=== PATIENT | male | born 1980 | race Caucasian/White ===

== ENCOUNTER → 2019-10-02 | Day surgery (SDC) | payer MEDICARE ==
[~2019-10-02] MED LIST: LORCET 5-325 M1 EACH PO; NOHOMEMEDICATIONS
--- NOTE | ~2019-10-02 | OP ---
[facility] [address] [place] [address] OPERATIVE REPORT Name: LEBRON ROLLE Room: [facility]#: [id number] Admission: 10/02/19 Attend Phys: Leon Pate Discharge: Date of : 80 Report #: [id number] THIS REPORT FOR: //name// cc: Delvis Pena Robin L. FNP THIS REPORT FOR: //name// CC: Leon Pena DATE OF SERVICE: 10/02/2019 PREOPERATIVE DIAGNOSIS: Left inguinal hernia. POSTOPERATIVE DIAGNOSIS: Left inguinal hernia. OPERATION: Laparoscopic repair of left inguinal hernia with mesh. SURGEON: Leon Pate MD ANESTHESIA: General. ESTIMATED BLOOD LOSS: Minimal. SPECIMEN: None. DESCRIPTION OF PROCEDURE: After informed consent was obtained, the patient was brought to the operating room and placed supine. SCDs were placed and working, preoperative antibiotics were administered, general anesthesia was induced. The patient had voided in the preoperative area. The abdomen was then prepped and draped in the usual sterile fashion. A 10 mm incision was made below the umbilicus. Fascia was incised and a trocar was placed. Pneumoperitoneum was established. Left lower quadrant and right lower quadrant 5 mm trocars were placed. Left ASIS was scored. Peritoneum was then incised and reflected inferiorly. I identified the pubic bone. The hernia sac was an indirect hernia, this was all reduced. The cord structures were protected at all times. A large Bard 3DMax mesh was inserted. It was tacked to Joe's ligament with 2 absorbable tacks. I then reapproximated the peritoneum with approximately 5 absorbable tacks. This covered the defect widely. The ports were then removed under direct vision. The fascia was closed with a [id number]-[id number] 0 Vicryl. Skin was closed with 4-0 Monocryl. Incisions were sealed with Dermabond. COMPLICATIONS: [place] [address] OPERATIVE REPORT Name: LEBRON ROLLE Room: [facility].#: [id number] Admission: 10/02/19 Attend Phys: Leon Pate Discharge: Date of : 80 Report #: [id number] DISPOSITION: The patient was taken to recovery in satisfactory condition. By: [id number] Pate MD /edgar
== END | disposition home or self-care (01) ==
LOC: M.SUR 06:58
PROVIDERS: ATTEND Surgery
DX: K40.90 Unilateral inguinal hernia, without obstruction or gangrene, not specified as recurrent (principal); Z11.59 Encounter for screening for other viral diseases; Z87.891 Personal history of nicotine dependence; Z72.89 Other problems related to lifestyle; Z79.899 Other long term (current) drug therapy

== ENCOUNTER 2021-02-11 06:45 | Emergency (ER) | payer MEDICARE ==
[~2021-02-11] VITALS: Ht 177.8 cm; Wt 90.7 kg
[2021-02-11 08:19] LABS: HEMATOCRIT 46.6 % (42.0-52.0); MCH 30.6 pg (26.0-34.0); MCHC 34.2 g/dL (28.0-37.0); MCV 89.5 fL (80.0-100.0); MPV 9.6 fl. (7.2-11.1); RBC 5.21 mil/uL (4.50-6.00); RDW-CV 12.3 % (10.5-14.5); WBC 5.2 thou/uL (4.0-11.0)
[2021-02-11 08:31] LABS: CALCIUM 9.1 mg/dL (8.5-10.1); CREATININE 1.1 mg/dL (0.6-1.3); POTASSIUM 4.5 mmol/L (3.5-5.1)
[2021-02-11 08:35] LABS: ALBUMIN 4.2 g/dL (3.4-5.0); TOTAL BILIRUBIN 0.4 mg/dL (<0.1-1.0); TOTAL PROTEIN 7.5 g/dL (6.4-8.2)
[2021-02-11] MEDS ORDERED: CIPRO500 M1 PO (08:57)
[2021-02-11 09:03] VITALS: BP 158/95
== END 2021-02-11 09:04 | disposition home or self-care (01) ==
LOC: M.ERS 06:45
PROVIDERS: Emergency Medicine Emergency Medical Services
DX: R19.7 Diarrhea, unspecified (principal); Z88.0 Allergy status to penicillin